=== PATIENT | female | born 1995 | race Caucasian/White ===

== ENCOUNTER 2022-03-29 21:38 | Emergency (ER) | payer SELFPAY ==
--- NOTE | 2022-03-29 22:00 | NUR ---
PATIENT WAS CALLED TO BE TRIAGED BUT WAS NOT PRESENT IN THE WAITING ROOM.
--- NOTE | 2022-03-29 22:30 | NUR ---
PATIENT WAS CALLED TO BE TRIAGED AT THIS TIME BUT WAS NOT PRESENT. PATIENT WAS NOT TRIAGED OR SEEN BY [facility].
== END 2022-03-29 22:30 | disposition left against medical advice (07) ==
LOC: ER 21:47
DX: Z53.21 Procedure and treatment not carried out due to patient leaving prior to being seen by health care provider (principal)

== ENCOUNTER 2025-03-06 14:28 | Emergency (ER) | payer OTHER ==
[~2025-03-06] VITALS: Ht 157.5 cm; Wt 50.8 kg
[2025-03-06 14:45] VITALS: BP 93/63
[2025-03-06 15:01] LABS: *BILIRUBIN,URIN NEGATIVE (NEGATIVE); *BLOOD, URINE NEGATIVE (NEGATIVE); *COLOR,URINE YELLOW (YELLOW); *KETONES,URINE NEGATIVE (NEGATIVE); *PROTEIN,URINE NEGATIVE (NEGATIVE); *UROBILINOGEN,URINE 1.0 E.U./dl (NORMAL); LEUKOCYTE ESTERASE ,URINE TRACE (NEGATIVE); NITRITE, URINE NEGATIVE (NEGATIVE); UGLUCOSE NEGATIVE (NEGATIVE)
[2025-03-06 15:07] LABS: *CLARITY,URINE SLIGHTLY HAZY (CLEAR); *URINE HCG, QUAL NEGATIVE (NEGATIVE)
[2025-03-06] MEDS: IV NORMAL SALINE 1000 ML BAG IV ONE (15:23)
[2025-03-06 15:29] LABS: PLATELET COUNT (AUTO) 245 K/uL (179-408); RED BLOOD CELL COUNT(AUTO) 4.54 MIL/uL (3.63-4.92); RED CELL DISTRIBUTION WIDTH 12.9 % (12.3-17.7); WHITE BLOOD COUNT (AUTO) 5.2 K/uL (3.8-11.8)
[2025-03-06 15:35] LABS: CREATININE 0.5 mg/dL (0.6-1.3); SODIUM SERUM 142 mmol/L (136-145); UREA NITROGEN, BLOOD 14 mg/dL (7-18)
[2025-03-06 15:38] LABS: SQUAMOUS EPITHELIAL CELL,UR MODERATE /HPF (NONE SEEN)
[2025-03-06 15:41] LABS: ASPARTATE AMINOTRANSFERASE 14 U/L (15-37); TOTAL PROTEIN, SERUM 7.9 g/dL (6.4-8.2)
[2025-03-06] MEDS ORDERED: KETOROLAC TROMETHAMINE 15 MG INJ IVP ONE (16:45)
[2025-03-06] MEDS ORDERED: FOSFOMYCIN TROMETHAMINE 3 GM PACKET ONE (16:54)
[2025-03-06] MEDS: FOSFOMYCIN TROMETHAMINE 3 GM PACKET PO ONE (16:57)
[2025-03-06] MEDS ORDERED: KETOROLAC TROMETHAMINE 15 MG INJ ONE (17:05)
[2025-03-06] MEDS: KETOROLAC TROMETHAMINE 15 MG INJ IVP ONE (17:15)
[2025-03-06 17:24] VITALS: BP 112/67; O2SAT 98
== END 2025-03-06 17:27 | disposition home or self-care (01) ==
LOC: ER 14:42
DX: E86.0 Dehydration (principal); F12.90 Cannabis use, unspecified, uncomplicated; F17.210 Nicotine dependence, cigarettes, uncomplicated; L30.9 Dermatitis, unspecified
CPT/HCPCS: 99283; 96374; 96361; 80076; 80048; 81001; 84703; 85025; 36415; J1885; J7040